=== PATIENT | female | born 1945 | race Caucasian/White ===

== ENCOUNTER 2018-03-25 14:45 | Inpatient (IN) | payer OTHER, BC ==
[~2018-03-25] VITALS: Ht 157.5 cm; Wt 72.6 kg
--- NOTE | ~2018-03-25 | HC ---
[facility] [place] [address] CONSULTATION Name: BELTRAN TIPTON Room #: 352-P ADM IN M.R.#: [id number] Admission: 03/25/18 Attend Phys: Aubrey Shin MD Discharge: Date of : 49 Report #: [id number] THIS REPORT FOR: //name// CC: Aubrey Sanders HISTORY OF PRESENT ILLNESS: The patient is a 73-year-old female who presented to the Emergency Room stating that she had right lower extremity weakness approximately 2 days ago. She had trouble holding her weight up on the right side. She also reports right buttock pain, but thought that was secondary to a wound. The patient has a history of type 2 diabetes. She admitted that she does not keep her blood sugar under control. She was first diagnosed in 2000. Reviewing the notes, apparently she fell on 02/19/2018 and that time was taken to [facility]. Apparently, an MRI showed a remote stroke. With that hospital admission, she had hyperglycemia and was in rehab and had only been home for 2 weeks prior to coming to [facility]. She has a friend who helps take care of her and takes her to appointments. Apparently, she has been hotline many times by different doctors because the patient does not take care of herself at home. She misses doses of medications. She tells me that she lives alone. She has family, but does not see them often. PAST MEDICAL HISTORY: Diabetes, hypertension, hyperlipidemia. PAST SURGICAL HISTORY: Negative. MEDICATIONS: Aspirin 81 mg daily, Lipitor 40 mg at bedtime, Plavix 75 mg daily, Colace 100 mg b.i.d., Januvia 100 mg daily, Lantus 30 units at bedtime, Cozaar 25 mg daily, Zyprexa 2.5 mg at bedtime, metformin 500 mg daily, glyburide 5 mg daily. ALLERGIES: None. PHYSICAL EXAMINATION: VITAL SIGNS: Temperature 37.4, pulse rate 105, respiratory rate 16, blood pressure 173/93, bedside pulse oximetry 90% on room air. LABORATORY WORK: White blood cell count 10.2, hemoglobin 11.4, hematocrit 34.2, MCV 89.9, platelet count 350,000. INR 1.1. Urinalysis 2+ leukocyte esterase, moderate white blood cells, moderate bacteria. Chemistry: Sodium 136, potassium 3.8, chloride 103, carbon dioxide 25, BUN 17, creatinine 1, GFR 55, glucose 205. Hemoglobin A1c 11.2. Cholesterol 183, LDL cholesterol 96, HDL cholesterol 61. Vitamin B12 462. TSH 2.6. IMAGING STUDIES: CT scan of the head demonstrates chronic age-related changes, no acute intracranial process identified. CT angiogram demonstrates unremarkable CTA [place] [address] CONSULTATION Name: BELTRAN TIPTON Room #: 352-P [facility] IN M.R.#: [id number] Admission: 03/25/18 Attend Phys: Aubrey Shin MD Discharge: Date of : 49 Report #: [id number] NEUROLOGIC: Cranial nerves 2-12 are grossly intact. Motor exam demonstrates symmetrical strength in all 4 extremities with the exception of the right lower extremity. The patient has proximal right lower extremity weakness. The patient also has high arches. Reflexes are trace throughout. Plantar responses are flexor. Coordination reveals intact [id number]. 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 She also probably has a right femoral neuropathy related to diabetes. However, I am going to order an MRI of the lumbar spine to make certain that she has no lumbar pathology as a cause for the right lower extremity weakness. An MRI head has already been ordered to evaluate for stroke. She is at risk given her history of uncontrolled diabetes. I would recommend an EMG of at least the right lower extremity as an outpatient. This can be done by Dr. Rocha in the office. Physical therapy has been ordered for the patient. I have also asked the nurse to get the patient up with meals. The patient also appears depressed and I have begun fluoxetine 10 mg in the morning. I thank you for your kind referral of the patient and we will continue to follow her with you. <ELECTRONICALLY SIGNED> By: Clotilde Glynn DO 03/27/18 1417 1056 1529 Clotilde Glynn DO /nt
--- NOTE | ~2018-03-25 | EKG ---
[address] [address] ELECTROCARDIOGRAM REPORT Name: SAEEDBELTRAN Room #: 352-P ADM IN M.R.#: [id number] Admission: 03/25/18 Attend Phys: Aubrey Shin MD Discharge: Date of : 49 Report #: [id number] THIS REPORT FOR: //name// [facility] ED Test Date: 2018-03-25 Test Time: 15:05:39 Pat Name: BELTRAN TIPTON Department: Room: [facility] Gender: F Resident Medical Officer: TIN : 1945 Requested By: Cheng Diamond Order Number: [id number] MD: Will Kumar Measurements Intervals [place] Rate: 99 P: 82 PA: 171 QRS: 33 QRSD: 82 T: 61 QT: 369 QTc: 474 Interpretive Statements Sinus rhythm Anteroseptal infarct, age indeterminate No previous ECG available for comparison Electronically Signed On 03-26-2018 10:08:45 CDT by Will Kumar [email or web address] <ELECTRONICALLY SIGNED> By: Will Kumar MD, [facility] 03/26/18 1008 D: [id number] 150 Will Kumar MD, FACC /EPI
--- NOTE | ~2018-03-25 | TEE ---
[facility] Berenice [place] [address] TRANSESOPHAGEAL ECHOCARDIOGRAM Name: BELTRAN TIPTON Room #: 352-P [facility]#: [id number] Admission: 03/25/18 Attend Phys: Ilan Sanders, Discharge: Date of : 49 Date of Service: 03/29/18 1142 Report #: [id number] THIS REPORT FOR: //name// APPROVED REPORT Study performed: 03/29/2018 08:37:20 EXAM: Comprehensive 2D, Doppler, and color-flow Echocardiogram Patient Location: In-Patient Room #: 352 Status: routine BSA: 1.74 HR: 97 bpm BP: 167/87 mmHg Other Information Study Quality: Good Indications CVA/TIA Echo Enhancing Agent Indication: Rule out Shunt Agent(s) / Amount(s) Used: Agitated Saline 7 cc Procedure After obtaining informed consent, patient underwent transesophageal echo in the [employer]. Type of Sedation : Conscious Sedation Sedation was administered by Madeline Rodriguez RN. Sedation was achieved intravenously with: Versed (3 mg) Fentanyl (25 mcg) Transesophageal probe was inserted and advanced into esophagus without difficulty by Will Kumar MD. The BROOKS was performed without complications. Throughout the procedure, the blood pressure, pulse oximetry, cardiac rhythm, and rate were monitored. The patient tolerated the procedure without adverse effects. Recovery from conscious sedation was uneventful and vital signs were stable. Left Ventricle The left ventricle is normal size. There is normal LV segmental wall motion. There is normal left ventricular wall thickness. The left [facility] [address] [place] [address] TRANSESOPHAGEAL ECHOCARDIOGRAM Name: BELTRAN TIPTON Room #: 352-P ADM IN M.R.#: [id number] Admission: 03/25/18 Attend Phys: Ilan Sanders, Discharge: Date of : 49 Date of Service: 03/29/18 1142 Report #: [id number] ventricular systolic function is normal. The left ventricular ejection fraction is within the normal range. LVEF is 55-60%. Right Ventricle The right ventricle is normal size. The right ventricular systolic function is normal. Atria The left atrium size is normal. No thrombus in left atrium or appendage Interatrial septum is intact without evidence of ASD or PFO. The right atrium size is normal. Aortic Valve The aortic valve is normal in structure. No aortic regurgitation is present. There is no aortic valvular stenosis. Mitral Valve The mitral valve is normal in structure. Trace mitral regurgitation. No evidence of mitral valve stenosis. Tricuspid Valve The tricuspid valve is normal in structure. There is no tricuspid valve regurgitation noted. Pulmonic Valve The pulmonary valve is normal in structure. There is no pulmonic valvular regurgitation. Great Vessels The aortic root is normal in size. Mild scattered atherosclerosis Pericardium There is no pericardial effusion. <Conclusion> The left ventricular systolic function is normal. There is normal LV segmental wall motion. LVEF is 55-60%. The left atrium size is normal. No thrombus in left atrium or appendage No shunting by contrast bubble injection The aortic valve is normal in structure. No stenosis or insufficiency The mitral valve is normal in structure. No stenosis or insufficiency [facility] [address] [address] TRANSESOPHAGEAL ECHOCARDIOGRAM Name: BELTRAN TIPTON Room #: 352-P [facility].#: [id number] Admission: 03/25/18 Attend Phys: Ilan Sanders, Discharge: Date of : 49 Date of Service: 03/29/18 114 Report #: [id number] Mild scattered atherosclerosis There is no pericardial effusion. <ELECTRONICALLY SIGNED> By: Will Kumar MD, FACC 03/29/18 114 41 41 Will Kumar MD, FACC /INF
[2018-03-25 14:45] VITALS: BP 167/71
[~2018-03-25 14:45] MED LIST: GLUCOPHAGE500 MG PO; KEFLEX500 MG PO; LORTAB 5 MG/5001 TAB PO; MICRONASE5 MG PO
[2018-03-25 15:37] LABS: HEMATOCRIT 34.2 % (37.0-47.0); HEMOGLOBIN 11.4 gm/dL (12.0-15.0); MCHC 33.4 g/dL (28.0-37.0); MCV 89.9 fL (80.0-100.0); RBC 3.8 mil/uL (4.20-5.00); RDW 13.8 % (10.5-14.5); WBC 10.2 thou/uL (4.0-11.0)
[2018-03-25 15:53] LABS: ANION GAP 8 mmol/L (7-16); BUN 17 mg/dL (7-18); CALCIUM 9.6 mg/dL (8.5-10.1); CHLORIDE 103 mmol/L (98-107); CO2 25 mmol/L (21-32); GLUCOSE 205 mg/dL (74-106); POTASSIUM 3.8 mmol/L (3.5-5.1); SODIUM 136 mmol/L (136-145)
[2018-03-25 15:54] LABS: APTT 27.1 Seconds (24.5-32.8); INR 1.1; PROTIME 10.9 Seconds (9.3-11.4)
[2018-03-25 16:02] LABS: TROPONIN-I <0.06 ng/mL (<0.06)
[2018-03-25 16:15] LABS: URINE BILIRUBIN NEGATIVE (Negative); URINE BLOOD TRACE (Negative); URINE COLOR YELLOW; URINE GLUCOSE-RANDOM* TRACE (Negative); URINE KETONES NEGATIVE (Negative); URINE NITRITE-REFLEX NEGATIVE (Negative); URINE PROTEIN (DIPSTICK) TRACE (Negative); URINE UROBILINOGEN 0.2 E.U./dl (0.2-1.0)
[2018-03-25 16:24] LABS: URINE CLARITY HAZY; URINE LEUKOCYTES-REFLEX 2+ (Negative)
[2018-03-25 16:33] LABS: CASTS None Seen /LPF (None Seen); CRYSTALS None Seen /LPF (None Seen); SQUAMOUS 0-3 Few /LPF (0-3); URINE RBC 0-2 Rare /HPF (0-2)
[2018-03-25 17:14] VITALS: BP 167/71
[2018-03-25 18:16] VITALS: BP 173/89
[2018-03-25 18:21] LABS: ALBUMIN 2.8 g/dL (3.4-5.0)
[2018-03-25 18:22] LABS: CHOLESTEROL 183 mg/dL (<200); HDL CHOLESTEROL 61 mg/dL (>40); LDL CHOLESTEROL 96 mg/dL (<100); TRIGLYCERIDE 130 mg/dL (<150); VLDL 26 mg/dL (<40)
[2018-03-25] MEDS ORDERED: ATORVASTATIN CA40 MG PO (18:39)
[2018-03-25] MEDS ORDERED: ASPIR 8181 MG PO (18:39)
[2018-03-25] MEDS ORDERED: COLACE100 MG PO (18:40)
[2018-03-25] MEDS ORDERED: JANUVIA100 MG PO (18:40)
[2018-03-25] MEDS ORDERED: PLAVIX 75 MG TA75 M1 PO (18:40)
[2018-03-25] MEDS ORDERED: LANTUS100 UNIT/M SUBQ (18:41)
[2018-03-25] MEDS ORDERED: COZAAR 25 MG TA25 M1 PO (18:42)
[2018-03-25] MEDS ORDERED: OLANZAPINE2.5 MG PO (18:42)
[2018-03-25 19:15] VITALS: BP 181/96
[2018-03-25 19:30] VITALS: BP 175/95
[2018-03-25 20:01] LABS: TSH 2.642 uIU/mL (0.358-3.740)
[2018-03-26 04:05] LABS: GLYCOHEMOGLOBIN (HGB A1C) 11.2 % (4.8-5.6)
[2018-03-26 04:30] VITALS: BP 151/93
[2018-03-26 07:41] VITALS: BP 173/93
[2018-03-26 15:44] VITALS: BP 137/76
[2018-03-26 20:20] VITALS: BP 139/75
[2018-03-27 04:20] VITALS: BP 117/58
[2018-03-27 07:47] LABS: HEMATOCRIT 32.5 % (37.0-47.0); MCH 30.3 pg (26.0-34.0); MCHC 33.9 g/dL (28.0-37.0); MCV 89.4 fL (80.0-100.0); RBC 3.64 mil/uL (4.20-5.00); RDW 13.4 % (10.5-14.5); WBC 6.8 thou/uL (4.0-11.0)
[2018-03-27 07:52] VITALS: BP 137/76
[2018-03-27 07:57] LABS: CALCIUM 9.4 mg/dL (8.5-10.1); MAGNESIUM 1.9 mg/dL (1.8-2.4); POTASSIUM 3.6 mmol/L (3.5-5.1)
[2018-03-27 11:22] VITALS: BP 155/85
[2018-03-27 16:37] VITALS: BP 153/86
[2018-03-27 19:22] VITALS: BP 128/68
[2018-03-28 04:10] VITALS: BP 123/71
[2018-03-28 05:21] LABS: HEMATOCRIT 32.3 % (37.0-47.0); HEMOGLOBIN 10.4 gm/dL (12.0-15.0); MCH 28.7 pg (26.0-34.0); MCHC 32.1 g/dL (28.0-37.0); MCV 89.5 fL (80.0-100.0); RBC 3.61 mil/uL (4.20-5.00); RDW 14.1 % (10.5-14.5); WBC 7.3 thou/uL (4.0-11.0)
[2018-03-28 05:30] LABS: MAGNESIUM 1.9 mg/dL (1.8-2.4); POTASSIUM 4.3 mmol/L (3.5-5.1)
[2018-03-28 07:58] VITALS: BP 135/80
[2018-03-28 11:18] VITALS: BP 145/78
[2018-03-28 16:01] VITALS: BP 154/84
[2018-03-28 20:00] VITALS: BP 152/77
[2018-03-29 03:45] VITALS: BP 122/70
[2018-03-29 05:39] LABS: HEMATOCRIT 33.8 % (37.0-47.0); HEMOGLOBIN 10.9 gm/dL (12.0-15.0); MCH 29.2 pg (26.0-34.0); MCHC 32.3 g/dL (28.0-37.0); MCV 90.4 fL (80.0-100.0); RBC 3.74 mil/uL (4.20-5.00); RDW 14.2 % (10.5-14.5); WBC 9.7 thou/uL (4.0-11.0)
[2018-03-29 05:48] LABS: CALCIUM 9.3 mg/dL (8.5-10.1); CREATININE 0.9 mg/dL (0.6-1.0); POTASSIUM 4.7 mmol/L (3.5-5.1)
[2018-03-29 07:45] VITALS: BP 167/87
[2018-03-29 11:40] VITALS: BP 152/83
[2018-03-29 12:26] VITALS: BP 152/83
== END 2018-03-29 17:27 | DRG 64 ==
LOC: ER 14:45 → 3W 17:57
PROVIDERS: Emergency Medicine; Internal Medicine
PROC: B24BZZ4 Ultrasonography of Heart with Aorta, Transesophageal (ICD-10-PCS; principal; 2018-03-24)
DX: I63.81 Other cerebral infarction due to occlusion or stenosis of small artery (principal); E43 Unspecified severe protein-calorie malnutrition; G81.91 Hemiplegia, unspecified affecting right dominant side; E46 Unspecified protein-calorie malnutrition; E78.5 Hyperlipidemia, unspecified; E11.42 Type 2 diabetes mellitus with diabetic polyneuropathy; R91.1 Solitary pulmonary nodule; F32.9 Major depressive disorder, single episode, unspecified; E11.65 Type 2 diabetes mellitus with hyperglycemia; M48.061 Spinal stenosis, lumbar region without neurogenic claudication; B95.5 Unspecified streptococcus as the cause of diseases classified elsewhere; I10 Essential (primary) hypertension; Z79.84 Long term (current) use of oral hypoglycemic drugs; Z79.4 Long term (current) use of insulin; Z79.82 Long term (current) use of aspirin; Z91.14 Patient's other noncompliance with medication regimen; Z68.29 Body mass index [BMI] 29.0-29.9, adult
CPT/HCPCS: 10779

== ENCOUNTER 2018-03-29 15:17 | Inpatient (IN) | payer OTHER, BC ==
[~2018-03-29] VITALS: Ht 167.6 cm; Wt 82.4 kg
--- NOTE | ~2018-03-29 | PLAN ---
[facility] [place] [address] REHAB UNIT PLAN OF CARE Name: BELTRAN TIPTON Room #: 511-P ADM IN M.R.#: [id number] Admission: 03/29/18 Attend Phys: Tom Esquivel MD Discharge: Date of : 47 Report #: [id number] THIS REPORT FOR: //name// CC: Tom Sanders DATE OF SERVICE: 04/01/2018 PROGRESS NOTE AND OVERALL PLAN OF CARE SUBJECTIVE: The patient is seen back today in followup. No specific complaints. She was a little groggy, but responsive. Last recorded temperature was 98.4, pulse 110, respirations 18, blood pressure 145/65. No calf swelling. She has dense right hemiparesis. Transfers are max assist, bed mobility is min assist, lower body dressing is dependent. She has moderate comprehensive deficits. ASSESSMENT: 1. Left basal ganglia lacunar infarct. 2. Dense right hemiparesis. 3. Poorly controlled diabetes mellitus type 2. 4. Moderate to severe lumbar spinal stenosis. 5. Hypertension. 6. Left upper lobe lung nodule. 7. Medical noncompliance. PLAN: The overall plan of care is based on the preadmission screen, post-admission physician evaluation and information garnered from therapy assessments. 1. Estimated length of stay is probably fairly long, likely 3 weeks pending progress, cooperation in therapies. 2. Medical prognosis is reasonably good. 3. Anticipated interventions includes the interdisciplinary acute inpatient rehabilitation program with PT, OT and speech, rehabilitation nursing assisting regarding medication management, skin care prophylaxis, bowel and bladder issues and nursing education. The service delivery management consultant physicians are involved as well. 4. Anticipated functional outcomes would be for the patient to become modified independent with transfers, mobility, ADLs, cognitive communication issues, so she can return back to the home setting. She will need a lot of additional assistance and case management has been involved with the durable power of radiotelegrapher. 5. Discharge destination would ideally be back to the home setting where she lives at home. We will need to see how she progresses in her therapies. 6. Expected therapy by discipline includes PT, OT and speech 1 hour per day [address] [address] REHAB UNIT PLAN OF CARE Name: BELTRAN TIPTON Room #: 511-P [facility] IN .R.#: [id number] Admission: 03/29/18 Attend Phys: Tom Esquivel MD Discharge: Date of : 47 Report #: [id number] each five days a week throughout the duration of the acute inpatient rehabilitation stay. By: 0858 07 Tom Esquivel MD /nt
--- NOTE | ~2018-03-29 | H ---
[facility] [place] [address] HISTORY AND PHYSICAL Name: BELTRAN TIPTON Room #: 511-P ADM IN M.R.#: [id number] Admission: 03/29/18 Attend Phys: Tom Esquivel MD Discharge: Date of : 47 Report #: [id number] THIS REPORT FOR: //name// CC: Tom Sanders DATE OF SERVICE: 03/29/2018 HISTORY AND PHYSICAL/POST-ADMISSION PHYSICIAN EVALUATION: HISTORY OF PRESENT ILLNESS: The patient is a 73-year-old white female who was admitted through the Emergency Department on 03/25/2018 with right-sided weakness. She was evaluated by Neurology. MRI brain showed small lacunar infarcts, left basal ganglia. She was noted to have weakness, more involving the lower extremity and upper extremity initially. She initially did not cooperate very well with therapies, but has been much more cooperative and is motivated to try to improve her functional independence. She has not been admitted for acute in-hospital inpatient rehabilitation. PAST MEDICAL HISTORY: Includes poorly controlled type 2 diabetes mellitus with hemoglobin A1c of 11.2, history of moderate to severe lumbar spinal stenosis, hypertension, left upper lobe lung nodule medical noncompliance. There is a note of right lower extremity neuropathy. MEDICATIONS: Please see the full medication listing. This includes vitamins, herbals, and supplements. ALLERGIES: No known drug allergies. HABITS: No history of alcohol abuse, no note of any tobacco abuse. SOCIAL HISTORY: She lives at home with her brother. Her neighbor as her durable power of trademark attorney. Brother apparently has a history of drug addiction and is not able to help at home. She did not utilize any assistive device and apparently has been outlined in the past. She was independent with ADLs and the neighbor assisted with some IADLs shopping and driving. REVIEW OF SYSTEMS: Did not offer any current complaints of chest pain, shortness of breath, abdominal discomfort. No complaints of headache. Denies any swallowing difficulties. She does have weakness of that right upper and right lower extremity. Denied any visual changes. She denied any further complaints. No note of any bowel or bladder changes. Nursing, however, notes some incontinence of bladder and bowel. PHYSICAL EXAMINATION: GENERAL: This is a 73-year-old white female in no obvious distress, pleasant. [address] [address] HISTORY AND PHYSICAL Name: BELTRAN TIPTON Room #: 511-P [facility] IN .R.#: [id number] Admission: 03/29/18 Attend Phys: Tom Esquivel MD Discharge: Date of : 47 Report #: [id number] VITAL SIGNS: Temperature 97.9, pulse 90, respirations 20 and blood pressure of 140/62. HEENT: Facies appeared to be symmetric. EOMs appeared to be intact. Seemed to be doing quite well, eating breakfast, utilizing her left hand. CHEST: Sounded clear to auscultation. CARDIOVASCULAR: Regular rate and rhythm. ABDOMEN: Bowel sounds positive, nontender. GENITOURINARY AND RECTAL: Deferred. NEUROLOGIC: She has functional range of motion. Strength of left upper and left lower extremity without focal weakness. DTRs are trace to 1. Right upper extremity reveals the proximal weakness. She currently has jordin-lap board in place. Strength is less than gravity, proximally she is able to move some of her fingers; however, that right hand at least a grade 3+/5, right lower extremity strength appears less than antigravity throughout. Tone appeared decreased. There was no clonus. ASSESSMENT: This is a 73-year-old white female with the following problem list: 1. Left basal ganglia lacunar infarcts. 2. Dense right hemiparesis. 3. Poorly controlled diabetes mellitus type 2. 4. Optdgjzp-gv-kiapnk lumbar spinal stenosis. 5. Hypertension. 6. Left upper lobe lung nodule. 7. Medical noncompliance. PLAN: The patient is admitted for acute in-hospital inpatient rehabilitation. From a post-admission physician evaluation, there is no relevant changes since the preadmission screening. Please see the above review of prior and current medical and functional conditions and comorbidities. Please see the patient's previous and current functional status. As far as risk of complications, the patient has multiple medical comorbidities as noted above. Initial plan of care involves the interdisciplinary acute inpatient rehabilitation program with goal of maximizing the patient's functional independence, so that she can hopefully return back to her prior living situation. Measurable functional goals would be for the patient to at least initially become independent at a wheelchair level and work on transfers and functional mobility issues. Prognosis is reasonably good with estimated length of stay probably at least 3 weeks with her decreased functional status. She has needed max assist with transfers prior to her admission here to the rehab [facility]. Potential barriers would include the multiple medical comorbidities as noted above and her decreased functional status. The patient meets diagnostic criteria for an acute in-hospital inpatient rehabilitation stay. She meets the medical necessity criteria and has the multiple medical comorbidities as noted above and we will have the commercial solar sales consultant [address] [address] HISTORY AND PHYSICAL Name: BELTRAN TIPTON Room #: 511-P ADM IN M.R.#: [id number] Admission: 03/29/18 Attend Phys: Tom Esquivel MD Discharge: Date of : 49 Report #: [id number] physicians involved. She does have the tolerance for therapies and has appropriate discharge goals back to the home setting. <ELECTRONICALLY SIGNED> By: Tom Esquivel MD 04/07/18 1213 0917 0935 Tom Esquivel MD /nt
[~2018-03-29 15:17] MED LIST changes: +ASPIR 8181 MG PO; +ATORVASTATIN CA40 MG PO; +COLACE100 MG PO; +COZAAR 25 MG TA25 M1 PO; +JANUVIA100 MG PO; +LANTUS100 UNIT/M SUBQ; +OLANZAPINE2.5 MG PO; +PLAVIX 75 MG TA75 M1 PO
[2018-03-29 15:30] VITALS: BP 146/72
[2018-03-29 19:55] VITALS: BP 140/62
[2018-03-30 04:28] LABS: HEMATOCRIT 30.5 % (37.0-47.0); HEMOGLOBIN 10.1 gm/dL (12.0-15.0); MCH 29.5 pg (26.0-34.0); MCHC 33.2 g/dL (28.0-37.0); MCV 88.8 fL (80.0-100.0); RBC 3.43 mil/uL (4.20-5.00); RDW 13.8 % (10.5-14.5)
[2018-03-30 04:37] LABS: CALCIUM 8.6 mg/dL (8.5-10.1); POTASSIUM 4.1 mmol/L (3.5-5.1)
[2018-03-30 07:30] VITALS: BP 119/62
[2018-03-30 19:47] VITALS: BP 147/94
[2018-03-31 07:58] VITALS: BP 150/80
[2018-03-31 19:50] VITALS: BP 145/65
[2018-04-01 07:25] VITALS: BP 116/49
[2018-04-01 19:30] VITALS: BP 151/78
[2018-04-02 08:00] VITALS: BP 127/57
[2018-04-02 19:26] VITALS: BP 115/55
[2018-04-03 08:45] VITALS: BP 130/91
[2018-04-03 19:46] VITALS: BP 167/89
[2018-04-04 07:10] VITALS: BP 144/70
[2018-04-04 19:27] VITALS: BP 125/56
[2018-04-05 07:45] VITALS: BP 98/53
[2018-04-05 19:21] VITALS: BP 131/70
[2018-04-06 07:30] VITALS: BP 131/67
[2018-04-06 19:00] VITALS: BP 152/85
[2018-04-07 07:26] VITALS: BP 111/60
[2018-04-07 19:15] VITALS: BP 137/58
[2018-04-08 07:09] VITALS: BP 124/71
[2018-04-08] MEDS ORDERED: GABAPENTIN 100100 MG PO (12:09)
== END 2018-04-08 15:18 | DRG 65 ==
PROVIDERS: Nurse Practitioner Family
DX: I63.9 Cerebral infarction, unspecified (principal); G81.91 Hemiplegia, unspecified affecting right dominant side; E11.65 Type 2 diabetes mellitus with hyperglycemia; I10 Essential (primary) hypertension; M48.061 Spinal stenosis, lumbar region without neurogenic claudication; F32.9 Major depressive disorder, single episode, unspecified; R91.1 Solitary pulmonary nodule; E11.40 Type 2 diabetes mellitus with diabetic neuropathy, unspecified; Z91.14 Patient's other noncompliance with medication regimen; Z68.29 Body mass index [BMI] 29.0-29.9, adult
CPT/HCPCS: 10112

== ENCOUNTER 2018-12-12 19:05 | Inpatient (IN) | payer OTHER, BC ==
[~2018-12-12] VITALS: Ht 167.6 cm; Wt 81.2 kg
[~2018-12-12 19:05] MED LIST changes: +GABAPENTIN 100100 MG PO
[2018-12-12 19:07] VITALS: BP 100/56
[2018-12-12 19:39] LABS: HEMATOCRIT 40.2 % (37.0-47.0); HEMOGLOBIN 13.2 gm/dL (12.0-15.0); MCH 27.7 pg (26.0-34.0); MCHC 32.7 g/dL (28.0-37.0); MCV 84.5 fL (80.0-100.0); RBC 4.76 mil/uL (4.20-5.00); RDW 15.5 % (10.5-14.5); WBC 6.9 thou/uL (4.0-11.0)
[2018-12-12 19:44] LABS: CREATININE 1.3 mg/dL (0.6-1.0); POTASSIUM 3.5 mmol/L (3.5-5.1)
[2018-12-12 19:56] LABS: TROPONIN-I 0.7 ng/mL (<0.06)
[2018-12-12 21:08] VITALS: BP 139/78
[2018-12-12 21:38] VITALS: BP 104/69
[2018-12-13 04:58] VITALS: BP 109/66
[2018-12-13 05:34] LABS: ANION GAP 13 mmol/L (7-16); BUN 22 mg/dL (7-18); CALCIUM 8.9 mg/dL (8.5-10.1); CHLORIDE 102 mmol/L (98-107); CHOLESTEROL 133 mg/dL (<200); CO2 22 mmol/L (21-32); CREATININE 1.1 mg/dL (0.6-1.0); GLUCOSE 134 mg/dL (74-106); HDL CHOLESTEROL 31 mg/dL (>40); LDL CHOLESTEROL 45 mg/dL (<100); SERUM ASSESSMENT Slight Lipemia; SODIUM 137 mmol/L (136-145); TC:HDL 4.3 Ratio (Not establshd); TRIGLYCERIDE 286 mg/dL (<150); VLDL 57 mg/dL (<40)
[2018-12-13 05:35] LABS: TROPONIN-I 1.77 ng/mL (<0.06)
--- NOTE | 2018-12-13 06:49 | NUR ---
PATIENTS CARES WAS ASSUMED AFTER SHE WAS TRANSFERED UP FROM ER. PATIENT WAS ADMITTED AND PATIENT WAS ASSESSED. PATIENT UNABLE TO SIGN FORMS DUE TO HER UNAWEAR R/T OVER MEDICATED AT A CARE CENTER. HOURLY ROUNDING DONE. BED IS IN A LOW AND LOCKED POSITION. BED ALARM IS ON
[2018-12-13 07:29] VITALS: BP 99/52
--- NOTE | 2018-12-13 09:17 | NUR ---
PT WOULD NOT LET THIS NURSE PERFORM A MORNING ASSESSMENT. PT TOLD THIS NURSE TO LEAVE THE ROOM AND SHE DID NOT WANT ANYONE IN THERE. WILL ATTEMPT TO ASSESS PT AT A BETTER TIME.
[2018-12-13 11:14] VITALS: BP 114/58
[2018-12-13 13:10] LABS: GLYCOHEMOGLOBIN (HGB A1C) 8.1 % (4.8-5.6)
--- NOTE | 2018-12-13 13:40 | NUR ---
FAXED CLINICAL UPDATE TO [facility] SPOKE WITH SIDNEY URIARTE RECEIVED UPDATE. DCP TO FOLLOW.
--- NOTE | 2018-12-13 15:00 | NUR ---
Nutrition: pt admitted with syncope, elevated troponin and seen due to wound risk. Per nsg documentation, small area on left buttock. Decreased po prior to admit noted per admit assessment however weights appear stable. Unable to speak with pt x 2 attempts to visit. Once asked RD to return, second was sleeping. Diet is heart healthy carb controlled. BG 110, Triglycerides 286, LDL 57. Offer Glucerna once daily, place as low risk.
--- NOTE | 2018-12-13 15:20 | NUR ---
CM ASSESSMENT: CASE OPENED FOR DC PLANNING. PT ADMITS FROM RECENT ADMIT TO [facility], NOW OUT OF SKILLED REHAB DAY AND PRIVATE PAY LTC. MET WITH PT WHO IS ALERT BUT AT PRESENT UNCOOPERATIVE. ATTEMPTED TO ASK PT ABOUT HER MOBILITY AND [facility], SHE RESPONDS SHE DOES NOT WANT TO SPEAK WITH ME. VM FROM PT'S MEDICAL/FINANCIAL DPOA SULAIMAN CASTANON. OBTAINED HISTORY FROM SULAIMAN BY PHONE. PT LIVED AT HOME UNTIL ABOUT 9 MONTHS AGO. PT HAS HAD A FEW HOSPITALIZATIONS AND TO SEVERAL SKILLED REHABS INCLUDING [facility], [facility], [facility] PT HAS LIVED IN [place] AT [facility] FOR 3 MONTHS AND HAS HAD [facility] IN PAST. PT IS UNABLE TO RETURN HOME AND DPOA INDICATES WANTS TO LOOK FOR ALTERNATIVE LTC PLACEMENT. LOOKING INTO IF [place] OR [place] MEDICAID [place] HAS BEEN COMPLETED. PT HAD INPT PSYCH STAY AT [facility] EARLIER THIS YEAR. HX OF DEPRESSION. FACILITY MED LIST INCLUDES ABILIFY. DISCUSSION WITH SIDNEY FROM [facility] NURSING [facility] ABOUT POSSIBILITY OF DC [facility]. DISCUSSED WITH DR. LEVY WHO IS PCP. DPOA SULAIMAN INFORMED PT MAY HAVE TO RETURN TO LTC AT [facility] IF PT MEDICALLY STABLE FOR DC BEFORE FINDING ALTERNATIVE LTC FACILITY A ROSEMARY HILARIO VEBALIZED HER UNDERSTANDING.
[2018-12-13 16:13] VITALS: BP 113/62
--- NOTE | 2018-12-13 17:11 | NUR ---
PT CONTINUES TO BE FUSSY, REFUSING CARE AT TIMES. PT REFUSED MEDS THIS AM, CHARTED PER EMAR. ASSESSMENT PERFORMED MUCH PT WOULD ALLOW, ORIENTED TO PERSON, WOULD NOT ANSWER OTHER ORIENTATION QUESTIONS. FALL PRECAUTIONS REMAINED IN PLACE THROUGHOUT SHIFT WITH PT FREQUENTLY CHECKED. RECEIVED ORDERS PER PHYSICIAN FOR PT TO BE MED SURG STATUS- WILL TRANSFER ACCORDINGLY. WILL CONTINUE TO CARE FOR PT MUCH ALLOWED, WILL CONTINUE TO MONITOR AND FOLLOW POC MUCH POSSIBLE.
[2018-12-13 19:50] VITALS: BP 127/80
--- NOTE | 2018-12-14 03:52 | NUR ---
ASSUMED PT CARE 1899. PT ALERT AND ORIENTED TO PLACE, PERSON, AND TIME. REASSESSMENT COMPLETE. VSS. IV DRESSING C/D/I, NO SIGNS OF INFITRLATION. UNABLE TO ASSESS PAIN, PT WILL NOT ANSWER. PT IMPULSIVE, IRRITABLE. CLOSE TO NURSING STATION, FREQUENT ROUNDING. CALL LIGHT WITHIN REACH. WILL CONTINUE POC UNTIL EOS.
[2018-12-14 06:00] VITALS: BP 131/74
--- NOTE | 2018-12-14 07:40 | EKG ---
[place] [address] [facility] [facility] [employer] [place] [address] ELECTROCARDIOGRAM REPORT Name: SAEEDBELTRAN Room #: 429-P ADM IN M.R.#: [id number] ������������������ Admission: 12/12/18 ������������������ Attend Phys: Ilan Sanders MD Discharge: ������������������ Date of : 49 Report #: [id number] ����������������������������������������������������������������� [id number] THIS REPORT FOR: //name// [facility] ED Test Date: 2018-12-12 Test Time: 19:36:16 Pat Name: BELTRAN TIPTON Department: Room: 429 Gender: F Crnp: KINZA : 1945 Requested By: Cheng Diamond Order Number: [id number] MD: Will Kumar Measurements Intervals [place] Rate: 113 P: 75 [place]: 176 QRS: 11 QRSD: 126 T: 190 QT: 330 QTc: 453 Interpretive Statements Sinus tachycardia Poor R wave progression Nonspecific ST and T wave abnormality Compared to ECG 03/25/2018 15:05:39 Nonspecific change in the ST and T-wave segments Electronically Signed On 12-14-2018 7:40:37 CDT by Will Kumar [email or web address] ��������������������������������������������� <ELECTRONICALLY SIGNED> ���������������������������������������� By: Will Kumar MD, [facility] ��������������������������������������������� 12/14/18 0740 35 35 Will Kumar MD, [facility] /EPI
--- NOTE | 2018-12-14 07:59 | EKG ---
[address] [place] [address] ELECTROCARDIOGRAM REPORT Name: SAEEDBELTRAN Room #: 429-P ADM IN M.R.#: [id number] ������������������ Admission: 12/12/18 ������������������ Attend Phys: Ilan Sanders MD Discharge: ������������������ Date of : 49 Report #: [id number] ����������������������������������������������������������������� [id number] THIS REPORT FOR: //name// [facility] Test Date: 2018-12-13 Test Time: 09:53:31 Pat Name: BELTRAN TIPTON Department: Room: 429 Gender: F Metal Plater: CAM : 1945 Requested By: Quynh Wright Order Number: [id number] MD: Will Kumar Measurements Intervals [place] Rate: 104 P: 78 [place]: 174 QRS: 0 QRSD: 101 T: -17 QT: 394 QTc: 519 Interpretive Statements Sinus tachycardia Anterolateral infarct, age indeterminate Prolonged QT interval Compared to ECG 03/25/2018 15:05:39 Prolonged QT interval now present Electronically Signed On 12-14-2018 7:59:31 CDT by Will Kumar [email or web address] ��������������������������������������������� <ELECTRONICALLY SIGNED> ���������������������������������������� By: Will Kumar MD, [facility] ��������������������������������������������� 12/14/18 0759 0953 0953 Will Kumar MD, [facility] /EPI
[2018-12-14 08:34] VITALS: BP 131/65
[2018-12-14 09:40] VITALS: BP 131/65
--- NOTE | 2018-12-14 09:57 | NUR ---
FA[facility]ED REFERRAL [facility] SPOKE WITH SIDNEY IN ADM SHE SPOKE WITH FACILITY AND THEY WILL NOT ACCEPT REFERRAL. DCP TO FOLLOW.
--- NOTE | 2018-12-14 12:02 | NUR ---
MET WITH PT THIS AM. SHE IS ALERT AND COOPERATIVE. PT VERIFIES SHE HAS PLANNED TO CHANGE DPOA TO HER BROTHER AND [id number] MARLENE AND VIVI BUCHANAN, AND DOCUMENT COMPLETED WITH ORIGINAL AND COPIES PLACED IN CHART FOR FAMILY. ALOS TALKED WITH PT ABOUT FAMILY'S PLAN TO FIND ALTERNATE LTC FACILITY AND PT STATES SHE IS NOT AGREEABLE TO THAT. TOLD HER ALTERNATIVE IS RETURNING TO [facility] AND MEETING WITH FACILITY B.O. AND SWS WITH MARLENE AND VIVI TO COME UP WITH PLAN TO PAY FOR LTC. PT STATES SHE IS AGREEABLE TO RETURN TO [facility]. CALLED VIVI AND UPDATED HER ABOUT MEDICAL POA AND CLINICAL STATUS AND LIKELY DC BACK TO [facility] TODAY. VIVI IS AGREEABLE. REACHED OUT TO DR. LEVY TO UPDATE AND WAITING RESPONSE FROM HIM. RN AND UNIT RN AND SALES MERCHANDISER CM UPDATED.
[2018-12-14] MEDS ORDERED: IMDUR 30 MG TAB30 M1 PO (12:28)
[2018-12-14] MEDS ORDERED: COREG6.25 MG PO (12:28)
[2018-12-14] MEDS ORDERED: ABILIFY10 MG PO (12:29)
--- NOTE | 2018-12-14 14:37 | NUR ---
PT DISCHARGING TODAY BACK TO [facility] FAXED DC ORDERS TO FACILITY SPOKE WITH SIDNEY IN ADM SHE RECEIVED DC ORDERS AND ARRANGED TRANSPORTATION VIA [facility] FOR 1600 TODAY. FAMILY NOTIFIED BY SW/RN AND UNIT NOTIFIED OF TIME OF TRANSPORT. CHART COPY PER US. RN TO CALL REPORT TO [phone].
--- NOTE | 2018-12-14 16:53 | NUR ---
ASSUMED CARE OF PT AT 0700. ASSESSMENT CHARTED. ALERT TO SELF, PLACE, AND SITUATION. PT VERY FUSSY, FLAT, IRRITABLE, AND FRUSTRATED. VERABALLY AGRESSIVE TOWARDS STAFF. SLEPT IN BED THROUGHOUT DAY. NEW ONSET OF AGITATION AND YELLING OUT. PHYSICIAN NOTIFIED. NEW ONE TIME ORDERED MED, PT REFUSED TO TAKE PO. REFUSED BP MEDS. ACHS, REFUSED INSULIN. NEW D/C ORDERS, PT IN STABLE CONDITION WAITING FOR MEDICAL TRANSPORT. IV REMOVED. WILL CONTINUE TO MONITOR.
== END 2018-12-14 18:35 | DRG 312 ==
LOC: ER 19:05 → EROBS 20:30 → 2N 20:30 → 4E 12-13 18:51
PROVIDERS: Emergency Medicine; Nurse Practitioner Family; ADMIT Family Medicine
PROC: 5A12012 Performance of Cardiac Output, Single, Manual (ICD-10-PCS; principal; 2018-12-13)
DX: R55 Syncope and collapse (principal); I69.351 Hemiplegia and hemiparesis following cerebral infarction affecting right dominant side; I25.10 Atherosclerotic heart disease of native coronary artery without angina pectoris; I10 Essential (primary) hypertension; E78.5 Hyperlipidemia, unspecified; E11.40 Type 2 diabetes mellitus with diabetic neuropathy, unspecified; E03.9 Hypothyroidism, unspecified; F32.9 Major depressive disorder, single episode, unspecified; I95.9 Hypotension, unspecified; F03.90 Unspecified dementia, unspecified severity, without behavioral disturbance, psychotic disturbance, mood disturbance, and anxiety; I25.5 Ischemic cardiomyopathy; Z87.440 Personal history of urinary (tract) infections; Z79.899 Other long term (current) drug therapy; Z79.82 Long term (current) use of aspirin; Z79.4 Long term (current) use of insulin; Z87.01 Personal history of pneumonia (recurrent); Z87.891 Personal history of nicotine dependence; Z79.02 Long term (current) use of antithrombotics/antiplatelets
CPT/HCPCS: 10081; 10783

== ENCOUNTER 2019-01-14 16:23 | Emergency (ER) | payer OTHER, BC ==
[~2019-01-14] VITALS: Ht 167.6 cm; Wt 90.7 kg
[~2019-01-14 16:23] MED LIST changes: +ABILIFY10 MG PO; +COREG6.25 MG PO; +IMDUR 30 MG TAB30 M1 PO
== END 2019-01-14 16:25 ==
LOC: ER 16:23
DX: I46.9 Cardiac arrest, cause unspecified (principal); E11.9 Type 2 diabetes mellitus without complications; I25.10 Atherosclerotic heart disease of native coronary artery without angina pectoris; I10 Essential (primary) hypertension; E78.5 Hyperlipidemia, unspecified; E11.40 Type 2 diabetes mellitus with diabetic neuropathy, unspecified; E03.9 Hypothyroidism, unspecified; Z86.73 Personal history of transient ischemic attack (TIA), and cerebral infarction without residual deficits; Z79.82 Long term (current) use of aspirin; Z79.899 Other long term (current) drug therapy; Z79.4 Long term (current) use of insulin